=== PATIENT | female | born 1965 | race Caucasian/White ===

== ENCOUNTER → 2020-10-25 | Outpatient (CLI) | payer OTHER ==
--- NOTE | 2020-11-15 18:53 | SLEEP ---
[address] [address] SLEEP STUDY REPORT Name: JOAN WHITNEY Room: [facility]#: [id number] Admission: 10/25/20 Attend Phys: Barry Lomeli Discharge: Date of : 61 Report #: [id number] THIS REPORT FOR: cc: Sweta Thorpe Linda J. DO ~ Usman Arce MD This study has been reviewed in its entirety by a board certified sleep specialist DATE OF SERVICE: 10/26/2020 HOME SLEEP STUDY INTERPRETATION: Total duration of the study is 483 minutes. During this time duration, we recorded 26 obstructive apneas in addition to 49 hypopneas with an overall apnea-hypopnea index of 8.9. Body position data indicates the patient was observed in the supine position for 457 minutes. The rest of the time, the patient was on the right side. There is no obvious positional variation. We also did record multiple desaturations. Overall, the patient spent 14.4 minutes below an O2 saturation of 90%, out of which 4.1 minutes were spent with an O2 saturation less than 88%. IMPRESSION: Obstructive sleep apnea with an apnea-hypopnea index of 9.8 with mild nocturnal hypoxemia as described above. The patient is noted to be supine for most of the sleep study. RECOMMENDATIONS: Options include proceeding to the administration of a CPAP auto titrated device or proceeding to an in-lab sleep study for positive airway pressure titration. Clinical correlation is advised. In some selected patients, the use of a mandibular advancement device can also be considered. <ELECTRONICALLY SIGNED> By: Usman Arce MD 11/15/20 [id number] Arce MD /nt
== END ==
LOC: M.PUL 10:30
PROVIDERS: ATTEND Family Medicine
DX: G47.33 Obstructive sleep apnea (adult) (pediatric) (principal)